=== PATIENT | female | born 1990 | race American Indian/Alaskan Native ===

== ENCOUNTER 2018-01-04 00:20 | Emergency (ER) | payer MEDICAID ==
[2018-01-04 00:46] VITALS: BP 114/63
[2018-01-04 01:13] LABS: Hematocrit 30.7 % (30.3-42.9); Mean Corpuscular HGB Conc 33 % (30-34); Mean Corpuscular Volume 74 fl (79-97); Platelet Count 206 K/mm3 (140-440); Red Blood Count 4.13 M/mm3 (3.65-5.03); Red Cell Distribution Width 14.6 % (13.2-15.2)
[2018-01-04 01:16] LABS: Mean Corpuscular Hemoglobin 24 pg (28-32)
[2018-01-04 01:22] LABS: BUN/Creatinine Ratio 25; Blood Urea Nitrogen 10 mg/dL (7-17); Hemolysis Index 0
[2018-01-04 01:23] LABS: INR 0.89 (0.87-1.13)
[2018-01-04 01:24] LABS: Partial Thromboplastin Time 30.4 Sec. (24.2-36.6)
[2018-01-04 02:49] LABS: Anisocytosis 1+; Band Neutrophils # (Manual) 0.5 K/mm3; Basophils % (Manual) 0 % (0.0-1.8); Hypersegmented Neutrophils Few; Monocytes % (Manual) 0 % (0.0-7.3); Total Cells Counted 100
--- NOTE | 2018-01-04 04:45 | XRay Report ---
FINAL REPORT EXAM: XR KNEE 1-2V LT HISTORY: left knee pain, swelling COMPARISONS: None. FINDINGS: AP and lateral views left knee Anatomic alignment with preserved joint spaces and no evident fracture or joint effusion. Periarticular soft tissue swelling. IMPRESSION: Left knee periarticular soft tissue swelling without evident fracture, gross malalignment or joint effusion. Consider additional imaging for worsening/persistent symptoms.
[2018-01-04] MEDS ORDERED: TYLENOL #3 PO ONE (04:51)
--- NOTE | 2018-01-04 05:05 | Emergency Department Report ---
HPI - General Chief Complaint: Extremity Problem,Nontraumatic Time Seen by Provider: 01/04/18 03:58 - HPI HPI: 27-year-old -[place] female at 33 weeks is here with bilateral leg swelling, left knee pain. Stated history of knee pain even prior to . symptoms seems to have gotten worse and this last couple weeks. To the point where patient awoke fairly difficult to walk due to the pain in the knee. Patient was seen at labor and delivery she states they did ultrasound which showed no DVTs in bilateral legs. ED Past Medical Hx - Past Medical History Previous Medical History?: Yes Hx Hypertension: No Additional medical history: scoliosis - Surgical History Past Surgical History?: Yes Additional Surgical History: spinal fusion, tonsilectomy, adenoids - Social History Smoking Status: Current Every Day Smoker Substance Use Type: Marijuana - Medications Home Medications: Home Medications Medication Instructions Recorded Confirmed Last Taken Type Acetaminophen/Codeine [Tylenol 1 tab PO Q6H PRN #7 tab 01/04/18 Unknown Rx /Codeine # 3 tab] ED Review of Systems ROS: Stated complaint: SWOLLEN KNEE UNABLE TO BEND/WALK Other details as noted in HPI Comment: All other systems reviewed and negative Cardiovascular: denies: chest pain, palpitations, dyspnea on exertion, orthopnea Musculoskeletal: joint swelling Physical Exam - Physical Exam Vital Signs: Vital Signs 01/04/18 00:33 Temperature 98.3 F Pulse Rate 110 H Respiratory 18 Rate Blood Pressure 114/63 O2 Sat by Pulse 97 Oximetry Physical Exam: - Physical Exam Physical Exam: - General Limitations: No Limitations General appearance: alert, in no apparent distress, obese - Head Head exam: Present: atraumatic, normocephalic - Eye Eye exam: Present: normal appearance - ENT ENT exam: Present: mucous membranes moist - Neck Neck exam: Present: normal inspection - Respiratory Respiratory exam: Present: normal lung sounds bilaterally. Absent: respiratory distress - Cardiovascular Cardiovascular Exam: Present: normal rhythm, tachycardia. Absent: systolic murmur, diastolic murmur, rubs, gallop - GI/Abdominal GI/Abdominal exam: Present: soft, normal bowel sounds, gravid uterus. - Extremities Exam Extremities exam: Present: 3+ edema bilaterally, left knee tenderness but no redness, range of motion uninhibited when helped. - Back Exam Back exam: Present: normal inspection - Neurological Exam Neurological exam: Present: alert, oriented X3 - Psychiatric Psychiatric exam: normal affect and mood - Skin Skin exam: Present: warm, dry, intact, normal color. Absent: rash ED Course Vital Signs 01/04/18 00:33 Temperature 98.3 F Pulse Rate 110 H Respiratory 18 Rate Blood Pressure 114/63 O2 Sat by Pulse 97 Oximetry ED Medical Decision Making - Lab Data Result diagrams: 01/04/18 01:00 01/04/18 01:00 Critical care attestation.: If time is entered above; I have spent that time in minutes in the direct care of this critically ill patient, excluding procedure time. ED Disposition Clinical Impression: Peripheral edema Left knee pain Qualifiers: Chronicity: acute Qualified Code(s): M25.562 - Pain in left knee Disposition: - TO HOME OR SELFCARE Is pt being admited?: No Does the pt Need Aspirin: No Condition: Stable Instructions: Leg Edema (ED) Prescriptions: Acetaminophen/Codeine [Tylenol /Codeine # 3 tab] 1 tab PO Q6H PRN #7 tab PRN Reason: Pain , Severe (7-10) Referrals: PRIMARY CARE, [Primary Care Provider] - 3-5 Days Forms: Work/School Release Form(ED)
== END 2018-01-04 07:00 | disposition home or self-care (01) ==
LOC: ED 00:20
DX: O26.893 Other specified pregnancy related conditions, third trimester (principal); I73.9 Peripheral vascular disease, unspecified; M25.562 Pain in left knee; O99.333 Smoking (tobacco) complicating pregnancy, third trimester; Z3A.33 33 weeks gestation of pregnancy
CPT/HCPCS: 36415; 80048; 85007; 85025; 85379; 85610; 85730; 99283